=== PATIENT | male | born 1985 | race African-American/Black ===

== ENCOUNTER 2016-07-11 08:14 | Emergency (ER) | payer OTHER ==
[~2016-07-11] VITALS: Ht 188 cm; Wt 79.5 kg
[2016-07-11 09:28] VITALS: BP 128/80
== END 2016-07-11 10:13 | disposition home or self-care (01) ==
LOC: EMS 08:15
DX: S90.112A Contusion of left great toe without damage to nail, initial encounter (principal); F17.210 Nicotine dependence, cigarettes, uncomplicated; W22.8XXA Striking against or struck by other objects, initial encounter; Y93.89 Activity, other specified; Y92.89 Other specified places as the place of occurrence of the external cause; Y99.8 Other external cause status
CPT/HCPCS: 99284

== ENCOUNTER 2016-09-17 15:47 | Emergency (ER) | payer OTHER ==
[~2016-09-17] VITALS: Ht 188 cm; Wt 84.1 kg
[2016-09-17 16:15] VITALS: BP 118/72
[2016-09-17] MEDS ORDERED: KETOROLAC TROMETHAMINE 60 MG/2 ML VIAL IM ONE (17:00)
== END 2016-09-17 17:20 | disposition home or self-care (01) ==
LOC: EMS 15:49
DX: S39.012A Strain of muscle, fascia and tendon of lower back, initial encounter (principal); F17.210 Nicotine dependence, cigarettes, uncomplicated; X58.XXXA Exposure to other specified factors, initial encounter; Y93.89 Activity, other specified; Y92.89 Other specified places as the place of occurrence of the external cause; Y99.8 Other external cause status
CPT/HCPCS: 96372; 99283; J1885

== ENCOUNTER 2016-12-01 13:41 | Emergency (ER) | payer OTHER ==
[~2016-12-01] VITALS: Ht 190.5 cm; Wt 76.4 kg
[2016-12-01 15:32] VITALS: BP 129/77
== END 2016-12-01 15:34 | disposition home or self-care (01) ==
LOC: EMS 13:45
DX: B02.9 Zoster without complications (principal); F17.210 Nicotine dependence, cigarettes, uncomplicated
CPT/HCPCS: 99283

== ENCOUNTER 2017-03-25 18:59 | Emergency (ER) | payer OTHER ==
[~2017-03-25] VITALS: Ht 190.5 cm; Wt 76.4 kg
[2017-03-25 19:58] VITALS: BP 135/78
[2017-03-25] MEDS ORDERED: KETOROLAC TROMETHAMINE 30 MG/ML VIAL IM ONE (20:15)
== END 2017-03-25 21:01 | disposition home or self-care (01) ==
LOC: EMS 19:01
DX: S39.011A Strain of muscle, fascia and tendon of abdomen, initial encounter (principal); R10.30 Lower abdominal pain, unspecified; F17.210 Nicotine dependence, cigarettes, uncomplicated; X58.XXXA Exposure to other specified factors, initial encounter; Y93.89 Activity, other specified; Y92.89 Other specified places as the place of occurrence of the external cause; Y99.8 Other external cause status
CPT/HCPCS: 96372; 99283; 99406; J1885

== ENCOUNTER 2021-12-25 15:50 | Emergency (ER) | payer MEDICAID, OTHER ==
[~2021-12-25] VITALS: Ht 190.5 cm; Wt 82.0 kg
[2021-12-25] MEDS: CEPHALEXIN MONOHYDRATE 500 MG CAPSULE PO ONE (18:26)
[2021-12-25] MEDS: PERTUSS(ACELL),DIPH,TET VAC/PF 0.5 ML SYRINGE IM. ONE (18:26)
[2021-12-25] MEDS: SILVER SULFADIAZINE 1% 25 GM CREAM TP ONE (18:26)
[2021-12-25] MEDS: HYDROCODONE/ACETAMINOPHEN 5-325 MG TABLET PO ONE (18:26)
[2021-12-25] MEDS ORDERED: MUPI15CR12 TP (18:55)
[2021-12-25] MEDS ORDERED: IBUP-2071 PO (18:55)
[2021-12-25] MEDS ORDERED: CEPH-558 PO (18:55)
[2021-12-25 19:08] VITALS: BP 128/75
== END 2021-12-25 19:10 | disposition home or self-care (01) ==
LOC: EMS 15:54
DX: T25.221A Burn of second degree of right foot, initial encounter (principal); F17.210 Nicotine dependence, cigarettes, uncomplicated; Z98.890 Other specified postprocedural states; X19.XXXA Contact with other heat and hot substances, initial encounter; Y93.89 Activity, other specified; Y92.89 Other specified places as the place of occurrence of the external cause; Y99.8 Other external cause status
CPT/HCPCS: 16020; 90471; 90715; 99284